=== PATIENT | female | born 1970 | race Caucasian/White ===

== ENCOUNTER → 2018-05-31 | Emergency (ER) | payer OTHER ==
[~2018-05-31] VITALS: Ht 152.4 cm; Wt 52.6 kg
[~2018-05-31] MED LIST: ATARAX25 MG PO; BEE WITH C1 CAP PO; CALCIUM600 MG; CEFTIN500 MG PO; ESTRACE2 MG; NABUMETONE500 MG PO; NITROFURANTOIN50 MG PO; PEPCID40 MG PO; PHENERGAN25 MG PO; SMZ-TMP DS 800-1 TAB; TESTOSTERONE5 GM; ULTRAM ER300 MG; VITAMIN D400 UNI3; WALPHED; [UNRECOGNIZED DRUG - OTHER]
== END | disposition left against medical advice (07) ==
LOC: ER 10:43
DX: Z53.20 Procedure and treatment not carried out because of patient's decision for unspecified reasons (principal)

== ENCOUNTER → 2021-03-14 | Emergency (ER) | payer OTHER ==
[~2021-03-14] VITALS: Ht 152.4 cm; Wt 52.2 kg
[~2021-03-14] MED LIST changes: +CORTEF20 MG; +TIROSINT25 MCG
== END | disposition left against medical advice (07) ==
LOC: ER 12:48
DX: T38.0X1A Poisoning by glucocorticoids and synthetic analogues, accidental (unintentional), initial encounter (principal); R00.2 Palpitations

== ENCOUNTER 2023-01-07 08:49 | Outpatient (CLI) | payer OTHER | END 2023-01-07 08:51 | disposition home or self-care (01) | LOC: NUCLEAR 08:49 → EDBD 08:49 → NUCLEAR 08:51 | DX: R07.89 Other chest pain (principal); R00.2 Palpitations; I10 Essential (primary) hypertension; I51.7 Cardiomegaly ==

== ENCOUNTER 2023-01-07 10:26 | Outpatient (CLI) | payer OTHER | END 2023-01-07 10:50 | disposition home or self-care (01) | LOC: TOM 10:26 → EDBD 10:26 → TOM 10:50 | DX: J32.9 Chronic sinusitis, unspecified (principal); G44.221 Chronic tension-type headache, intractable; R42 Dizziness and giddiness; R06.02 Shortness of breath ==

== ENCOUNTER 2023-01-07 11:27 | Outpatient (CLI) | payer OTHER | END 2023-01-07 15:14 | disposition home or self-care (01) | LOC: LAB 11:27 → EDBD 11:27 → LAB 15:14 | PROVIDERS: ATTEND General Practice | DX: R00.2 Palpitations (principal); I10 Essential (primary) hypertension; R07.89 Other chest pain; I51.7 Cardiomegaly ==

== ENCOUNTER 2023-09-01 08:35 | Outpatient (CLI) | payer OTHER | END 2023-09-01 08:41 | disposition home or self-care (01) | LOC: SONOGRAMA 08:35 | PROVIDERS: ATTEND Obstetrics & Gynecology Gynecology | DX: R17 Unspecified jaundice (principal) ==

== ENCOUNTER 2023-10-17 08:35 | Outpatient (CLI) | payer OTHER | END 2023-10-17 08:47 | disposition home or self-care (01) | LOC: MRI 08:35 | PROVIDERS: ATTEND Obstetrics & Gynecology Gynecology | DX: K82.4 Cholesterolosis of gallbladder (principal) | CPT/HCPCS: 74183 ==

== ENCOUNTER 2024-07-22 09:07 | Outpatient (CLI) | payer OTHER | END 2024-07-22 09:10 | disposition home or self-care (01) | LOC: MRI 09:07 | DX: K82.4 Cholesterolosis of gallbladder (principal); K86.2 Cyst of pancreas | CPT/HCPCS: 74183 ==

== ENCOUNTER → 2025-07-13 | Outpatient (CLI) | payer OTHER | END | disposition home or self-care (01) | LOC: MRI 07-07 07:39 | DX: K82.4 Cholesterolosis of gallbladder (principal); K86.2 Cyst of pancreas | CPT/HCPCS: 74183 ==